=== PATIENT | male | born 1995 | race Two or more races ===

== ENCOUNTER 2019-08-06 23:48 | Emergency (ER) | payer MEDICAID ==
[~2019-08-06] VITALS: Ht 170.2 cm; Wt 68.0 kg
--- NOTE | 2019-08-06 23:58 | Emergency Room Report ---
History of Present Illness General Chief Complaint: Substance Abuse Source: Patient, EMS Present Illness HPI This a 23-year-old male who is homeless. He has a history of drug abuse. He presents with chief complaint of overdose. Said that he took cocaine tonight. He was acting abnormal and bizarrely so bystander called 911. Patient admits to using cocaine, methamphetamines, marijuana and any other drugs that he can get. He denies suicidal thoughts homicidal thought. But he does say that he felt paranoid. They made it better. Nothing made it worse. Is any trauma. Allergies: Coded Allergies: No Known Allergies (Unverified , 08/06/19) Patient History Past Medical History: see triage record, old chart reviewed Past Surgical History: other Family History: none Social History: ETOH, drug use, single Immunizations: other Reviewed Nursing Documentation: PMH: Agreed; PSxH: Agreed Nursing Documentation-PMH Past Medical History: No History, Except For Hx Diabetes: Yes Review of Systems ENT: Denies: sore throat Cardiovascular: Denies: chest pain, palpitations Gastrointestinal/Abdominal: Denies: nausea, vomiting, diarrhea Musculoskeletal: Denies: back problems Skin: Denies: rash Neurological: Denies: CHRISTIE, seizures All Other Systems: negative except mentioned in HPI Physical Exam Vital Signs Date Time Temp Pulse Resp B/P (MAP) Pulse Ox O2 Delivery O2 Flow Rate FiO2 08/06/19 23:52 97.0 107 26 152/109 (123) 98 Room Air Vitals with high blood pressure Sp02 EP Interpretation: reviewed, normal General Appearance: alert/responsive, no apparent distress, non-toxic Head: normocephalic, atraumatic Eyes: PERRL, EOMI ENT: oropharynx normal Neck: supple/symm/no masses Respiratory: effort normal, no rhonchi, no wheezing Cardiovascular: no murmur, gallop, rub Gastrointestinal: non-tender, no mass, non-distended, no rebound/guarding, normal bowel sounds Musculoskeletal: gait & station normal Neurologic: oriented x3, sensory intact, motor strength/tone normal Psychiatric: other - Patient is jittery and cannot stay still. He is also making grunting noises. Suicide Risk Assessment: Suicidal Ideation: No Had intent to initiate attempt: No Pt's plan for suicide attempt: No Has means to complete attempt: No Skin: no rash, normal palpation Medical Decision Making Diagnostic Impression: Primary Impression: Polysubstance abuse Additional Impression: Psychosis Qualified Codes: F23 - Brief psychotic disorder ER Course Patient presents with drug-induced psychosis and agitation. Better after Haldol and Benadryl. He slept through the night without any issue. No criteria for 5150. This patient is a chronic risk of self injury due to poor impulse control, limited coping skills, and judgment intermittently impaired by intoxication. I believe that the available clinical evidence to suggest that these characteristics derived primarily from personality disorder and are likely very stable over time. Hospitalization would likely attenuate risk of self-harm only during residential period, without lasting risk reduction. Serious self-harm , while possible, would likely be inadvertent, and because of impulsivity, and foreseeable. For these reasons, I do not believe hospitalization would provide meaningful reduction in risk of self-harm. Last Vital Signs Date Time Temp Pulse Resp B/P (MAP) Pulse Ox O2 Delivery O2 Flow Rate FiO2 08/06/19 23:52 97.0 107 26 152/109 (123) 98 Room Air Status: improved Disposition: HOME, SELF-CARE Condition: Stable Scripts No Active Prescriptions or Reported Meds Patient Instructions: Substance Use Disorder Additional Instructions: Abstain from drugs and alcohol. Follow-up with mental health in 7 days. Return if worse. Kendrick Collins MD Aug 06, 2019 23:58
[2019-08-07] MEDS ORDERED: DiphenhydrAMINE 50mg/ml Inj IM ONE
[2019-08-07] MEDS ORDERED: Haloperidol 5mg/ml Inj IM ONE
[2019-08-07 00:02] VITALS: BP 152/109
--- NOTE | 2019-08-07 00:02 | NUR ---
ED Nurse Note: Pt BIBA d/t OD. Pts VS elevated - see interventions; ERMD aware. Pt aao x 3, rambling, speaking under breath to self. Pt states he took methamphetamines and fentanyl IV. Pt able to provide UA; UA sent to lab. Awaiting ERMD at bedside.
--- NOTE | 2019-08-07 00:05 | NUR ---
ED Nurse Note: [employer] arrived for pt to determine SI/intent to hurt others; Pt denies SI/intent to hurt others.
--- NOTE | 2019-08-07 00:12 | NUR ---
ED Nurse Note: ERMD at bedside
--- NOTE | 2019-08-07 00:15 | NUR ---
ED Nurse Note: all medications administered; pt tolerated well no s/s of distress noted, no adverse reactions. Pt resting in bed with lights dimmed to reduce stimulus.
--- NOTE | 2019-08-07 00:41 | NUR ---
ED Nurse Note: Pt resting in bed, no s/s of distress noted. no adverse reactions noted.
--- NOTE | 2019-08-07 02:30 | NUR ---
ED Nurse Note: Pt sleeping in bed, VSS no s/s of distress noted.
[2019-08-07 02:46] VITALS: BP 132/82
[2019-08-07 04:24] VITALS: BP 122/74
--- NOTE | 2019-08-07 04:24 | NUR ---
ED Nurse Note: Pt sleeping in bed, VSS no s/s of distress noted.
[2019-08-07 05:35] VITALS: BP 127/80
--- NOTE | 2019-08-07 05:35 | NUR ---
ER DISCHARGE NOTE: Patient is cleared to be discharged home per ERMD, pt is aox4, on room air, with stable vital signs. pt was given dc instructions, pt was able to verbalize understanding, pt id band removed. pt is able to ambulate with steady gait. pt took all belongings; pt given additional food and clothing adequate for weather.
== END 2019-08-07 05:35 | disposition home or self-care (01) ==
LOC: EDBD 23:48 → EMR 23:59
DX: F19.10 Other psychoactive substance abuse, uncomplicated (principal); F23 Brief psychotic disorder; E11.9 Type 2 diabetes mellitus without complications
CPT/HCPCS: 96372; J1200; J1630; Z7502; 99283